=== PATIENT | female | born 1950 | race African-American/Black ===

== ENCOUNTER 2022-05-01 13:38 | Day surgery (SDC) | payer MEDICARE ==
[~2022-05-01] VITALS: Ht 167.6 cm; Wt 72.4 kg
[2022-05-01] MEDS ORDERED: CARAFATE 1GM1 G PO (14:17)
[2022-05-01 14:27] VITALS: BP 140/63; PULSE 61; TEMP 98
[2022-05-01 16:00] VITALS: BP 159/81; PULSE 78; TEMP 98.6
[2022-05-01 16:15] VITALS: BP 153/70; PULSE 69
[2022-05-01 16:30] VITALS: BP 147/63; PULSE 65
[2022-05-01 16:45] VITALS: BP 128/58; PULSE 61
[2022-05-01 17:00] VITALS: BP 134/61; PULSE 66; TEMP 98.2
--- NOTE | 2022-05-01 17:45 | NUR ---
1600 PT RETURNED TO [facility] VIA CART. TRANSFERRED TO CHAIR WITH RN ASSIST. ALERT AND ORIENTED. MONITORS ATTACHED, INTERVALS AND ALARMS SET. VSS. PT DENIES PAIN OR NAUSEA. CLEAR LIQUIDS PROVIDED. CALL LIGHT IN REACH. 1615 VSS. PT DENIES DISCOMFORT. TOLERATING CLEAR LIQUIDS DRINK WELL. 1630 VSS. PT DENIES DISCOMFORT. 1645 VSS. PT DENIES PAIN OR NAUSEA. 1700 VSS. PT DENIES ANY DISCOMFORT. 1715 EJ IV REMOVED USING ASEPIC TECHNI, 2X2 GAUZE DRESSING APPLIED. LIGHT PRESSURE APPLIED TO AREA, NO SIGNS OF BLEEDING. NO COMPLICATION, PT TOLERATED WELL. PT ALLOWED TO DRESS. REVIEWED DISCHARGE INSTRUCTIONS AND EDUCATION MATERIAL, ANSWERED ALL QUESTIONS. 1745 TRANSFERRED PT VIA WHEELCHAIR TO PERSONAL VEHICLE TO BE DRIVEN HOME BY DAUGHTER.
== END 2022-05-01 17:45 | disposition home or self-care (01) ==
LOC: SDCO 13:38
DX: Z46.59 Encounter for fitting and adjustment of other gastrointestinal appliance and device (principal); K83.8 Other specified diseases of biliary tract; K31.89 Other diseases of stomach and duodenum; K80.50 Calculus of bile duct without cholangitis or cholecystitis without obstruction; R79.89 Other specified abnormal findings of blood chemistry; D62 Acute posthemorrhagic anemia; Z90.49 Acquired absence of other specified parts of digestive tract
CPT/HCPCS: C1769; J2704; Q9966; Q9967

== ENCOUNTER 2022-05-11 13:45 | Outpatient (RCR) | payer MEDICARE ==
[~2022-05-11 13:45] MED LIST: CARAFATE 1GM1 G PO
== END 2022-05-13 | disposition home or self-care (01) ==
LOC: MKS.ESL.PT
DX: R53.81 Other malaise (principal)

== ENCOUNTER 2022-11-09 15:30 | Outpatient (RCR) | payer MEDICARE | END 2022-11-10 | disposition home or self-care (01) | LOC: MKS.ESL.PT | DX: R53.81 Other malaise (principal) ==

== ENCOUNTER 2022-11-30 16:00 | Outpatient (RCR) | payer MEDICARE | END 2022-12-11 | disposition home or self-care (01) | LOC: MKS.ESL.PT | DX: R53.81 Other malaise (principal) ==

== ENCOUNTER 2023-01-04 16:30 | Outpatient (RCR) | payer MEDICARE | END 2023-01-10 | disposition home or self-care (01) | LOC: MKS.ESL.PT | DX: R53.81 Other malaise (principal) ==